=== PATIENT | female | born 1945 | race Caucasian/White ===

== ENCOUNTER → 2020-11-02 | Outpatient (CLI) | payer MEDICARE ==
[~2020-11-02] MED LIST: ATOR1TAB19 PO; ELIQ5TAB PO; GLIP2.5T6 PO; GLIP5TAB20 PO; HOME MED LIST COMPLETE! XX SCH; HYDR12CA PO; LIDOCAINE 1% MDV 20ML VIAL As Ordered ONE; LOSA100T50 PO; METO1TAB32 PO; SERT-141 PO; SODIUM BICARBONATE 8.4% INJ 50MEQ 50 ML VIAL As Ordered ONE; TIMO0.5S29 OU; XALA0.007 OU
--- NOTE | 2020-11-02 10:04 | REP ---
INDICATION: POST RIGHT LUNG BIOPSY, 1 VIEW, PA INSPIRATION. COMPARISON: Comparison is made with CT images from September 14, 2020. TECHNIQUE: PA chest radiograph. Inspiration. FINDINGS: Post biopsy chest x-ray demonstrates increased parenchymal density in the right apex at the is site of the pulmonary nodule. There is no evidence of pneumothorax. There are multifocal areas of interstitial pulmonary fibrosis again seen. Pleural angles are sharp. There are degenerative changes in the thoracic spine. IMPRESSION: No complications seen. <Electronically signed by Brady Espinoza > 11/02/20 1000
[2020-11-02 12:02] VITALS: BP 167/72
--- NOTE | 2020-11-02 13:30 | REP ---
INDICATION: SOLITARY PULMONARY NODULE. COMPARISON: None. TECHNIQUE: The procedure is performed by Madalyn Funk [facility], under the direct supervision of Dr. Espinoza. The risks and benefits of the procedure were explained to the patient and informed consent was obtained both orally and written. Directly prior to the start of the procedure, a formal timeout was done in the exam room. The right upper lobe lung mass was localized using CT guidance. Skin was prepped and draped in the usual sterile fashion. Six ml of buffered lidocaine was used as a local anesthetic. FINDINGS: Using CT guidance a 19/20 gauge coaxial needle biopsy system was inserted and advanced into the right upper lobe lung mass. Eight core biopsy samples were obtained and sent to the lab. CT images obtained directly after the biopsy show no evidence of pneumothorax. After the appropriate amount of monitored convalescence the patient was discharged from the department. IMPRESSION: CT guided right upper lobe lung mass biopsy. <Electronically signed by Madalyn Funk > 11/02/20 [id number] <Electronically signed by Brady Espinoza > 11/02/20 [id number]
== END ==
LOC: M IRPRO 07:59
PROVIDERS: ATTEND Internal Medicine Pulmonary Disease
DX: C34.11 Malignant neoplasm of upper lobe, right bronchus or lung (principal)

== ENCOUNTER → 2020-11-19 | Outpatient (CLI) | payer MEDICARE ==
[~2020-11-19] MED LIST changes: -HOME MED LIST COMPLETE! XX SCH; -LIDOCAINE 1% MDV 20ML VIAL As Ordered ONE; -SODIUM BICARBONATE 8.4% INJ 50MEQ 50 ML VIAL As Ordered ONE
--- NOTE | 2020-11-20 10:19 | REP ---
INDICATION: STAGING LUNG CANCER C34.11. COMPARISON: Outside CT of the chest 09/14/2020. No prior PET CTs for comparison. TECHNIQUE: After the intravenous administration of 9.12 mCi of FDG 18 triplane whole-body PET-CT was performed from the skull base to the mid thigh. FINDINGS: The right upper lobe lung nodule seen on the prior outside CT of the chest which persists on today's nondiagnostic CT component of the PET-CT is hypermetabolic with maximal SUV value of 14.61. There is additional scattered multifocal parenchymal hypermetabolic activity seen in the dependent portion of the lung floyd. This is too numerous to count or individually assess the nondiagnostic CT component of today's exam shows interstitial lung disease with parenchymal scarring and lung field hypoexpansion. There is extensive right hilar hypermetabolism which cannot be from the right hilar vascular structures, however, the degree of hypermetabolic activity is far beyond what would be expected in the vessels themselves and having a maximal SUV value of 18.56 consistent with hypermetabolic adenopathy. Scattered areas of spinal marrow hypermetabolic activity is identified having a maximal SUV value of 3.92 No other areas of abnormal hypermetabolic activity are seen in the neck, chest, abdomen, or pelvis. IMPRESSION: There is hypermetabolic activity in the right lung nodule and right hilum consistent with metastatic disease. The multifocal areas of hypermetabolism seen in the posterior dependent lung parenchyma, as described above, are likely secondary to chronic pulmonary parenchymal changes. Certainly, metastatic foci cannot be completely dismissed. Close follow-up is suggested. The hypermetabolic activity seen in the spinal marrow, as described above, is likely secondary to normal red marrow uptake rather than true skeletal metastasis, however, this should be monitored closely and consideration should be made for conventional bone scintigraphy if relevant. <Electronically signed by Moiz Clark > 11/20/20 [id number]
== END ==
LOC: M PLARAD 11:12
PROVIDERS: ATTEND Internal Medicine Pulmonary Disease
DX: R93.89 Abnormal findings on diagnostic imaging of other specified body structures (principal); C34.11 Malignant neoplasm of upper lobe, right bronchus or lung
CPT/HCPCS: 78815; A9552

== ENCOUNTER → 2020-12-08 | Outpatient (CLI) | payer MEDICARE | LOC: M LABSMTC 09:05 | PROVIDERS: ATTEND Anesthesiology | DX: Z20.822 Contact with and (suspected) exposure to COVID-19 (principal) ==

== ENCOUNTER 2020-12-13 05:58 | Day surgery (SDC) | payer MEDICARE ==
[~2020-12-13] VITALS: Ht 167.6 cm; Wt 90.7 kg
[~2020-12-13 05:58] MED LIST changes: +ALBUTEROL SULFATE 2.5 MG/0.5 ML INH NEB SOLN INH ONE; +LIDOCAINE 4% INJ 5ML AMP INH ONE; +LR 1,000 ML IV ONE
[2020-12-13] MEDS ORDERED: LIDOCAINE 1% MDV 20ML VIAL SQ PRN (06:00)
[2020-12-13] MEDS ORDERED: THROMBIN SOLN 5,000 UNITS VIAL As Ordered ONE (07:20)
[2020-12-13] MEDS ORDERED: LIDOCAINE VISCOUS 2% SOLN 15ML UDC As Ordered ONE (07:21)
[2020-12-13] MEDS ORDERED: EPINEPHrine 1MG/10ML SYRINGE 1.5IN As Ordered ONE (07:21)
[2020-12-13] MEDS ORDERED: LIDOCAINE 1% SDV 30ML VIAL As Ordered ONE (07:21)
[2020-12-13] MEDS ORDERED: CETACAINE SPRAY 5GM As Ordered ONE (07:23)
[2020-12-13] MEDS ORDERED: SCOPOLAMINE 1MG TRANSDERMAL PATCH As Ordered ONE (07:33)
[2020-12-13] MEDS ORDERED: SCOPOLAMINE 1MG TRANSDERMAL PATCH TOP ONE (07:35)
[2020-12-13] MEDS ORDERED: ROCURONIUM BROMIDE 50 MG/5 ML VIAL As Ordered ONE (07:57)
[2020-12-13] MEDS ORDERED: propofoL 200 MG/20 ML VIAL As Ordered ONE (07:57)
[2020-12-13] MEDS ORDERED: LIDOCAINE 2% 100MG/5ML SDV (FOR ANES.) As Ordered ONE (07:57)
[2020-12-13] MEDS ORDERED: MIDAZOLAM INJ 2MG/2ML VIAL (J2250 PER 1MG) As Ordered ONE (07:57)
[2020-12-13] MEDS ORDERED: ONDANSETRON 4MG/2ML VIAL As Ordered ONE (07:57)
[2020-12-13] MEDS ORDERED: dexameTHASONE 4 MG/ML 1ML VIAL (J1100 PER 1MG) As Ordered ONE (07:57)
[2020-12-13] MEDS ORDERED: ACETAMINOPHEN 1000MG 100ML IV BTL (OFIRMEV) (J0131 PER 10MG) As Ordered ONE (07:57)
[2020-12-13] MEDS ORDERED: SUGAMMADEX SODIUM 500 MG/5 ML VIAL (BRIDION) As Ordered ONE (07:57)
[2020-12-13] MEDS ORDERED: fentaNYL 100 MCG/2 ML INJECTION (J3010) As Ordered ONE (07:57)
[2020-12-13] MEDS ORDERED: METOCLOPRAMIDE INJ 10MG/2ML VIAL (J2765 PER 1) As Ordered ONE (07:57)
[2020-12-13] MEDS ORDERED: ONDANSETRON 4MG/2ML VIAL IV PRN (08:50)
[2020-12-13] MEDS ORDERED: LR 1,000 ML IV SCH (08:50)
[2020-12-13] MEDS ORDERED: fentaNYL 100 MCG/2 ML INJECTION (J3010) IV PRN (08:50)
[2020-12-13] MEDS ORDERED: ALBUTEROL SULFATE 2.5 MG/0.5 ML INH NEB SOLN INH ONE (08:55)
[2020-12-13] MEDS ORDERED: ACETAMINOPHEN TAB 650MG DOSE (2X325MG) PO PRN (08:55)
--- NOTE | 2020-12-13 09:05 | RO ---
OPERATIVE NOTE DATE OF OPERATION: 12/13/2020 PREOPERATIVE DIAGNOSIS: POSTOPERATIVE DIAGNOSIS: PROCEDURE: Fiberoptic bronchoscopy with fine needle aspirate of lymph nodes via endobronchial ultrasound. SURGEON: De Gama MD. IT PROJECT MANAGER: Fabby Duong MD. ANESTHESIA: General. Informed consent was obtained prior to the procedure. OPERATIVE FINDINGS: 1. Right hilar and paratracheal adenopathy. 2. Extrinsic compression of the most anterior segment of the right upper lobe. OTHER MEDICATIONS USED: 5000 units of topical Thrombin. DESCRIPTION OF PROCEDURE: After the patient was identified and the above anesthesia given, the fiberoptic bronchoscope was easily passed via the existing endotracheal tube. The tube was in good position. Ashleigh was reasonably sharp. It did appear to move. Some scant secretions were encountered that reasonably suctioned clear. Left lung was entered first. All segments and subsegments of upper and lobe easily identified and widely patent. Attention was then turned to the right. There was some mild submucosal abnormality noted of the take-off of the right upper lobe. Although the main bronchus to the right upper lobe was patent, there was significant extrinsic compression anteriorly of the most anterior subsegment of the right upper lobe. The remainder of the upper lobe was open. Bronchus intermedius, middle lobe and basilar segments were easily identified and otherwise generally widely patent. The standard scope was then withdrawn and the endobronchial ultrasound scope was then introduced. Under ultrasound guidance, multiple passes were made of the right paratracheal proximal right hilar node. Initial examination by the dry cell tester does show abnormal cells visualized. Multiple passes were taken for cell block. The Ebus scope was withdrawn. The standard scope was then re-introduced. There was some minimal bleeding. Topical saline lavage and 5000 units of topical Thrombin were used. When adequate hemostasis was achieved, the scope was then withdrawn and the procedure terminated. Care was then turned over to anesthesia for reversal of anesthesia and extubation. No immediate complications of the procedure were identified.
[2020-12-13 10:10] VITALS: BP 139/78
== END 2020-12-13 10:25 | disposition home or self-care (01) ==
LOC: M SDC 05:58
PROVIDERS: ATTEND Internal Medicine Pulmonary Disease
DX: C34.11 Malignant neoplasm of upper lobe, right bronchus or lung (principal); C77.1 Secondary and unspecified malignant neoplasm of intrathoracic lymph nodes; J98.4 Other disorders of lung; I48.91 Unspecified atrial fibrillation; J96.11 Chronic respiratory failure with hypoxia; E11.9 Type 2 diabetes mellitus without complications; H40.9 Unspecified glaucoma; I10 Essential (primary) hypertension; E78.00 Pure hypercholesterolemia, unspecified; M19.90 Unspecified osteoarthritis, unspecified site; F41.9 Anxiety disorder, unspecified; F32.9 Major depressive disorder, single episode, unspecified; Z79.899 Other long term (current) drug therapy; Z79.01 Long term (current) use of anticoagulants; Z86.16 Personal history of COVID-19
CPT/HCPCS: 31652; 88173; 88305; J0131; J1100; J2250; J2405; J2765; J3010

== ENCOUNTER → 2020-12-27 | Outpatient (CLI) | payer MEDICARE ==
[~2020-12-27] MED LIST changes: -ALBUTEROL SULFATE 2.5 MG/0.5 ML INH NEB SOLN INH ONE; -LIDOCAINE 4% INJ 5ML AMP INH ONE; -LR 1,000 ML IV ONE
--- NOTE | 2020-12-27 11:39 | RADONC.CN ---
Radiation Oncology Hx/Consult Radiation Oncology Consult Date of Service: Dec 27, 2020 Pt Identifier Yuki Gusman is a 75 year old female former smoker with a recently diagnosed RUL NSCLC [id number] stage IIIA. She is seen for consideration of chemoradiation. Diagnosis/Treatment History Oncologic History April 2020: CAP/COVID hospitalization with CT chest showing RUL nodule September 2020: Showed enlargement of the RUL nodule and associated mediastinal adenopathy 11/02/20: EBUS biopsy (Dr. 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 No distant mets She had a surgical evaluation @ [facility] and on the basis of the mediastinal disease surgery was removed as an option. She has seen Dr. Tran who plans weekly chemotherapy with RT. 10/19/20 PFTs FVC 2.22 FEV1 1.82 FEV1/FVC 74% pred DLCO 46% pred Mild restrictive deficit and moderate diffusion impairment Interval History Here with her supportive daughter. Yuki is very hard of hearing but can read lips quite well. She has no pain to speak of. Has chronic cough, no hemoptysis. Minimal THOMASON, able to do all ADLs. No weight loss, appetite good. Past Medical History: Afib DM2 Glaucoma HPL HTN Past Surgical History: Cholecystectomy Family History: No family cancer history Social History: 30 pack year former smoker quit 2008 Does not drink Allergies / Meds Allergies: Coded Allergies: No Known Allergies (Unverified , 12/12/20) Home Meds Reported Medications Glipizide (Glipizide ER) 2.5 Mg Tab.er.24, 2.5 MG PO DAILY 11/02/20 Latanoprost (Xalatan) 0.005% 2.5ML Drops, 1 DROP OU QHS 11/02/20 Timolol Maleate (Timolol Maleate) 0.5% 5ML Drops, 1 DROP OU DAILY 11/02/20 Losartan Potassium (Losartan Potassium) 100 Mg Tablet, 100 MG PO DAILY 10/30/20 Hydrochlorothiazide (Hydrochlorothiazide) 12.5 Mg Capsule, 12.5 MG PO DAILY, CAP 10/30/20 Atorvastatin Calcium (Atorvastatin Calcium) 10 Mg Tablet, 10 MG PO QHS, TAB 10/30/20 Apixaban (Eliquis) 5 Mg Tablet, 5 MG PO BID, TAB 10/30/20 Sertraline Hcl (Sertraline HCl) 50 Mg Tablet, 50 MG PO DAILY 10/30/20 Review of Systems Constitutional: Denies: Fever, Night Sweats, Fatigue Eyes: Denies: Pain HEENT: Denies: Head Aches Skin: Denies: Rash Pulmonary: Reports: Cough; Denies: Dyspnea Cardiovascular: Denies: Chest Pain Gastrointestinal: Denies: Abdominal Pain Hematologic: Denies: Enlarged Lymph Nodes Musculoskeletal: Denies: Neck pain, Back pain Neurological: Denies: Weakness, Numbness Psych: Reports: Mood Normal Vital Signs Ht 66" Wt 201 lbs BMI 32 T 97.9 P 69 RR 18 BP 121/69 O2 90% on RA Pain 0 Fatigue 0 General Exam: Alert, Cooperative, No Acute Distress Eye Exam: PERRLA, EOMI ENT EXAM: Atraumatic Neck Exam: Supple; Negative: Lymphadenopathy Chest Exam: Clear to auscultation, Rhonchi (JASE and mid, mild rhonchi. No wheezing. No rales) Abdomen Exam: Soft; Negative: Tenderness Extremity Exam: Negative: Edema Skin Exam: Nl turgor and temperature Neuro Exam: Normal Gait, Normal Speech; Negative: Cranial Nerves 3-12 NL (BL CNVIII) Psych Exam: Mental status NL Diagnostic and Laboratory Diagnostic Review Radiologic images, relevant labs and pathology reports were personally reviewed and discussed with Ms. Gusman. Assessment and Plan Impression Ms. Gusman is a 75 year old female with a history of former smoker with a recently diagnosed RUL NSCLC [id number] stage IIIA. She is seen for consideration of chemoradiation. Stage RUL NSCLC [id number] stage IIIA Performance Status ECOG 0 Plan We had an extensive discussion with Ms. Gusman regarding the diagnosis at hand and available therapeutic options. I reviewed her imaging and pathology with them in detail. She has a small RUL primary and confluent right hilar and paratracheal adenopathy on PET-CT. The marrow uptake mentioned on PET-CT does not appear pathologic or suspicious for metastatic disease, rather it is probably reactive secondary to her anemia and moderate DLCO impairment. I think there is little utility in the bone scan that has been scheduled for 01/21/21. I left the option of cancelling this as by the time the study is completed she will be under treatment. She does need brain imaging to complete staging, therefore I will order an MRI to be done next week. For treatment Dr. Tran has recommended weekly chemotherapy. Concurrent with this I will give 60-66 Gy in 30-33 fractions contingent upon final dosimetry. I will use VMAT to reduce the risk of grade 3 pulmonary and esophageal toxicity. We will employ a 4DCT/ITV based simulation to account for tumor motion during the respiratory cycle. We discussed the logistics of receiving radiation therapy in detail including the need for a 1-time planning session. This can occur next week. We reviewed the side effects of treatment including fatigue, esophagitis, p neumonitis and fibrosis. After completion of chemoradiation she will receive immunotherapy per Dr. Tran. After discussing the risks, benefits and alternatives to radiation therapy, Ms. Gusman was amenable to pursuing radiotherapy. All questions were answered to the patient's satisfaction. We instructed the patient that if there were any questions,concerns or changes in clinical status in the interim to contact us. Recommendations Chemoradiation 60-66 Gy in 30-33 fractions with 4DCT/VMAT/ITV planning as described above MRI brain to complete staging Can cancel 01/21/21 bone scan, PET-CT is negative and the scan is not timely enough to be of use Billing Statement Total time of [47] minutes was spent preparing for the visit [3], obtaining HPI [7], examining the patient [4], reviewing diagnostic tests [7], discussing management options [15], coordinating care [3], and writing this note [8]. EMILE WESTON MD Dec 27, 2020 11:39
== END ==
LOC: M ONCR 08:53
PROVIDERS: ATTEND General Practice
DX: C34.11 Malignant neoplasm of upper lobe, right bronchus or lung (principal); Z79.899 Other long term (current) drug therapy; Z87.891 Personal history of nicotine dependence

== ENCOUNTER → 2020-12-31 | Outpatient (CLI) | payer MEDICARE ==
[~2020-12-31] MED LIST changes: +LIDOCAINE 1% MDV 20ML VIAL As Ordered ONE; +MIDAZOLAM INJ 2MG/2ML VIAL (J2250 PER 1MG) As Ordered ONE; +NS 1,000 ML IV SCH; +ceFAZolin 2 GM/D5W 50 ML IV BAG (J0690 PER 500MG) As Ordered ONE; +ceFAZolin SOD 2 GM in IV 1 EA IV ONE; +diphenhydrAMINE 50MG/ML VIAL (J1200) As Ordered ONE; +fentaNYL 100 MCG/2 ML INJECTION (J3010) As Ordered ONE
--- NOTE | 2020-12-31 12:50 | IRHP ---
[facility] IR Pre-Procedure H & P General Date of Service: Dec 31, 2020 Procedure: Same Day Surgery Interval History and Physical I have seen the patient and reviewed last H & P performed within 30 days. There is no significant interval change. History of Present Illness Chief Complaint The patient is a 75-year-old female admitted with a reason for visit of Lung Ca. PRE-PROCEDURE DIAGNOSIS: Lung cancer HEART: Normal rate. LUNGS: Normal breathing at rest. ASA Classification ASA Classification: III-Severe systemic dis. Mallampati Score: II NPO: Yes Problems with prior sedation: No Obstructive Sleep Apnea: No Plan moderate sedation Allergies Coded Allergies: No Known Allergies (Unverified , 12/12/20) Home Medications Scheduled Apixaban (Eliquis), 5 MG PO BID, (Reported) Atorvastatin Calcium (Atorvastatin Calcium), 10 MG PO QHS, (Reported) Glipizide (Glipizide ER), 2.5 MG PO DAILY, (Reported) Hydrochlorothiazide (Hydrochlorothiazide), 12.5 MG PO DAILY, (Reported) Latanoprost (Xalatan), 1 DROP OU QHS, (Reported) Losartan Potassium (Losartan Potassium), 100 MG PO DAILY, (Reported) Sertraline Hcl (Sertraline HCl), 50 MG PO DAILY, (Reported) Timolol Maleate (Timolol Maleate), 1 DROP OU DAILY, (Reported) VS, I&O, 24H, Fishbone Vital Signs/I&O Vital Signs Date Time Temp Pulse Resp B/P (MAP) Pulse Ox O2 Delivery O2 Flow Rate FiO2 12/31/20 12:00 97.3 76 18 96 Room Air JENELLE GARCIA MD Dec 31, 2020 12:50
[2020-12-31 15:40] VITALS: BP 163/74
--- NOTE | 2021-01-03 13:03 | IRPON ---
IR Postoperative Note Date Of Procedure: Dec 31, 2020 Time Of Procedure: 16:00 IR Postoperative Note IR Ultrasound and fluoroscopy guided port placement IR Ultrasound of the neck. IR Moderate sedation. Clinical indication: Lung cancer. Physician: Dr. Reyez. Procedure: The patient was advised of the benefits, risks, and alternatives of the procedure and informed consent was obtained. A time-out was performed with verification of the patient's name, MRN, site of procedure and type of procedure to be performed. The patient was positioned in the supine position on the angiographic table. The site was prepped and draped in the usual sterile fashion. Moderate sedation was performed by the physician including the presence of an independent trained RN who assisted and monitored the patient's level of consciousness and physiologic status. Following the administration of fentanyl and Versed , the physician spent 45 minutes of continuous face to face time with the patient. Ultrasound of the neck reveals a patent and compressible right internal jugular vein. A registered massage therapist radiograph reveals hilar fullness. The neck and anterior chest wall were anesthetized with lidocaine. The right internal jugular vein was accessed using a microintroducer needle under ultrasound guidance, via a lateral approach. An 018 wire was advanced into the superior vena cava, the needle was removed and a microsheath was placed. An Amplatz wire was then passed into the inferior vena cava. An incision at the internal jugular vein access site and anterior chest wall were made using a scalpel. An incision was made at the anterior chest wall. A small pocket was created using a combination of blunt and sharp dissection. A tunneling device was then used to pass the catheter from the pocket to the neck puncture site. An 8- [employer] [facility] Smart power port was then positioned in the pocket. The catheter was then measured and cut. The introducer sheath was exchanged for a peel-away sheath. The catheter was passed through the peel-away sheath into the internal jugular vein and the peel-away sheath was removed. The port tip was positioned at the cavoatrial junction. The port was then accessed with a Wang needle. The port flushes and aspirates well. The puncture site in the neck was closed. The chest wall incision was then closed with 2-0 Vicryl and 4-0 Monocryl. Glue and Steri- Strips were applied. A sterile dressing was then applied. The patient tolerated the procedure well and was returned to the PRU in stable condition. Estimated blood loss: <5 ml. Complications: None. Conclusion: 1. Successful placement of an 8-[employer] Smart power port via the right internal jugular vein. The port is ready for immediate use. 2. Patient to follow up in IR clinic in 2 weeks. Thank you for this referral. JENELLE REYEZ MD Jan 03, 2021 13:03
== END ==
LOC: M IRPRO 11:46
PROVIDERS: ATTEND Specialist
DX: C34.90 Malignant neoplasm of unspecified part of unspecified bronchus or lung (principal); Z79.899 Other long term (current) drug therapy
CPT/HCPCS: 36561; 99152; 99153; C1769; C1788; C1894; J0690; J1200; J1642; J1644; J2250; J3010

== ENCOUNTER 2021-01-02 13:49 | Outpatient (RCR) | payer MEDICARE ==
[~2021-01-02 13:49] MED LIST changes: -LIDOCAINE 1% MDV 20ML VIAL As Ordered ONE; -MIDAZOLAM INJ 2MG/2ML VIAL (J2250 PER 1MG) As Ordered ONE; -NS 1,000 ML IV SCH; -ceFAZolin 2 GM/D5W 50 ML IV BAG (J0690 PER 500MG) As Ordered ONE; -ceFAZolin SOD 2 GM in IV 1 EA IV ONE; -diphenhydrAMINE 50MG/ML VIAL (J1200) As Ordered ONE; -fentaNYL 100 MCG/2 ML INJECTION (J3010) As Ordered ONE
== END 2021-01-06 ==
LOC: M ONCR 13:49
PROVIDERS: ATTEND General Practice
DX: C34.11 Malignant neoplasm of upper lobe, right bronchus or lung (principal)

== ENCOUNTER → 2021-01-10 | Outpatient (CLI) | payer MEDICARE ==
[~2021-01-10] MED LIST changes: +ONDA8TAB10 PO; +PROC10TA4 PO; +PROHANCE 279.3MG/ML 5ML VIAL As Ordered ONE
--- NOTE | 2021-01-10 23:16 | REPVR ---
PROCEDURE INFORMATION: Exam: MR Head Without and With Contrast Exam date and time: 01/10/2021 6:41 PM Age: 75 years old Clinical indication: Staging for lung cancer. Assess for metastatic disease. TECHNIQUE: Imaging protocol: MR of the head without and with intravenous contrast. Contrast material: PROHANCE; Contrast volume: 7 ml; Contrast route: INTRAVENOUS (IV); COMPARISON: PET/CT Skull/mid thigh 11/19/2020 12:19 PM FINDINGS: Brain: Nonspecific T2/FLAIR hyperintensities of the periventricular and deep subcortical white matter and negin, most likely secondary to chronic small vessel ischemic change. No intracranial hemorrhage or extra-axial fluid collection. No evidence of mass effect or midline shift. No restricted diffusion to suggest acute infarct. No abnormal intracranial enhancement. Cerebral ventricles: Prominence of the ventricles and sulci, likely attributed to parenchymal volume loss. Bones/joints: Unremarkable. Paranasal sinuses: Normal as visualized. No acute sinusitis. Mastoid air cells: No mastoid effusion. Orbital cavity: Unremarkable. Soft tissues: Unremarkable. IMPRESSION: 1. No acute intracranial pathology. No evidence of metastatic disease to the brain. 2. Chronic findings, as above. Electronically signed by: Marcial Kim On 01/10/2021 23:15:29 PM
== END ==
LOC: M RAD 17:41
PROVIDERS: ATTEND General Practice
DX: C34.11 Malignant neoplasm of upper lobe, right bronchus or lung (principal)
CPT/HCPCS: 70553; A9576

== ENCOUNTER → 2021-01-15 | Outpatient (POV) | payer MEDICARE ==
[~2021-01-15] VITALS: Ht 167.6 cm; Wt 90.9 kg
[~2021-01-15] MED LIST changes: -PROHANCE 279.3MG/ML 5ML VIAL As Ordered ONE
[2021-01-15 09:45] VITALS: BP 160/82
--- NOTE | 2021-01-17 12:30 | IRPN ---
[facility] IR Progress Note IR Progress Note DATE: Jan 15, 2021 FOLLOW-UP: Status post port placement. Patient reports doing well. No fevers, chills, pain or discharge from site. ON EXAMINATION: Port site healing well. Glue and Steri-Strips are in place. No redness, swelling or fluctuance. IMPRESSION: Doing well status post port placement. Glue and Steri-Strips will fall off by themselves. No further follow-up scheduled unless initiated by patient and/or referring provider. Thank you for this referral Allergies Coded Allergies: No Known Allergies (Unverified , 12/12/20) VS,Fishbone, I+O VS, Fishbone, I+O Vital Signs Date Time Temp Pulse Resp B/P (MAP) Pulse Ox O2 Delivery O2 Flow Rate FiO2 01/15/21 09:45 96.4 58 16 160/82 (108) 92 Room Air JENELLE GARCIA MD Jan 17, 2021 12:29
== END ==
LOC: M IRPOV 09:39
PROVIDERS: ATTEND Radiology Diagnostic Radiology
DX: Z45.2 Encounter for adjustment and management of vascular access device (principal)

== ENCOUNTER → 2021-02-05 | Outpatient (RCR) | payer MEDICARE ==
[~2021-02-05] MED LIST changes: +LOSA100T45 PO; -LOSA100T50 PO; +NACCAP PO; +ONDA-84 PO; -ONDA8TAB10 PO; -PROC10TA4 PO; +PROC10TA5 PO
== END ==
LOC: M ONCR 01-07 13:30
PROVIDERS: ATTEND General Practice
DX: C34.11 Malignant neoplasm of upper lobe, right bronchus or lung (principal)

== ENCOUNTER 2021-03-04 11:23 | Outpatient (RCR) | payer MEDICARE ==
[~2021-03-04 11:23] MED LIST changes: -LOSA100T45 PO; +LOSA100T50 PO; -NACCAP PO; -ONDA-84 PO; +ONDA8TAB10 PO; +PROC10TA4 PO; -PROC10TA5 PO
== END 2021-03-08 ==
LOC: M ONCR 11:23
PROVIDERS: ATTEND General Practice
DX: C34.11 Malignant neoplasm of upper lobe, right bronchus or lung (principal)

== ENCOUNTER → 2021-06-03 | Outpatient (CLI) | payer MEDICARE ==
[~2021-06-03] MED LIST changes: +ISOVUE-370 76% 100ML VIAL As Ordered ONE; +LOSA100T45 PO; -LOSA100T50 PO; +NACCAP PO; +ONDA-84 PO; -ONDA8TAB10 PO; -PROC10TA4 PO; +PROC10TA5 PO
== END ==
LOC: M RAD 12:01
PROVIDERS: ATTEND Internal Medicine Medical Oncology
DX: C34.11 Malignant neoplasm of upper lobe, right bronchus or lung (principal)
CPT/HCPCS: 71260; Q9967

== ENCOUNTER → 2021-09-04 | Outpatient (CLI) | payer MEDICARE ==
[~2021-09-04] MED LIST changes: +CLAR5TAB11 PO; +FLON1SPR NARES; -ISOVUE-370 76% 100ML VIAL As Ordered ONE; +PULM90IN INH
== END ==
LOC: M ONCR 10:52
PROVIDERS: ATTEND General Practice
DX: C34.11 Malignant neoplasm of upper lobe, right bronchus or lung (principal); J70.1 Chronic and other pulmonary manifestations due to radiation; Z79.01 Long term (current) use of anticoagulants; Z79.899 Other long term (current) drug therapy; Z87.891 Personal history of nicotine dependence; Z92.3 Personal history of irradiation; Z92.21 Personal history of antineoplastic chemotherapy; Z92.25 Personal history of immunosuppression therapy

== ENCOUNTER → 2021-11-14 | Outpatient (CLI) | payer MEDICARE ==
[~2021-11-14] MED LIST changes: +ISOVUE-370 76% 100ML VIAL As Ordered ONE; +ISOVUE-370 76% 25ML SYRINGE As Ordered ONE; +L-TH100C2 PO
== END ==
LOC: M RAD 10:41
PROVIDERS: ATTEND Internal Medicine Medical Oncology
DX: C34.90 Malignant neoplasm of unspecified part of unspecified bronchus or lung (principal)
CPT/HCPCS: 71260; Q9967

== ENCOUNTER → 2022-02-12 | Outpatient (CLI) | payer MEDICARE ==
[~2022-02-12] MED LIST changes: -ISOVUE-370 76% 25ML SYRINGE As Ordered ONE
== END ==
LOC: M RAD 10:13
PROVIDERS: ATTEND Specialist
DX: C34.90 Malignant neoplasm of unspecified part of unspecified bronchus or lung (principal)
CPT/HCPCS: 71260; Q9967

== ENCOUNTER → 2022-02-26 | Outpatient (CLI) | payer MEDICARE ==
[~2022-02-26] MED LIST changes: -ISOVUE-370 76% 100ML VIAL As Ordered ONE
== END ==
LOC: M ONCR 10:33
PROVIDERS: ATTEND General Practice
DX: C34.11 Malignant neoplasm of upper lobe, right bronchus or lung (principal); J70.1 Chronic and other pulmonary manifestations due to radiation; Z79.01 Long term (current) use of anticoagulants; Z79.84 Long term (current) use of oral hypoglycemic drugs; Z79.899 Other long term (current) drug therapy; Z87.891 Personal history of nicotine dependence; Z92.21 Personal history of antineoplastic chemotherapy; Z92.25 Personal history of immunosuppression therapy; Z92.3 Personal history of irradiation

== ENCOUNTER → 2022-07-08 | Outpatient (CLI) | payer MEDICARE ==
[~2022-07-08] MED LIST changes: +CEFP100T PO; +GASTROGRAFIN SOLUTION 30ML As Ordered ONE; +ISOVUE-370 76% 100ML VIAL As Ordered ONE; -LOSA100T45 PO; +LOSA100T46 PO; +LOSA50TA28; +TIMO0.5S20 OU; -TIMO0.5S29 OU
== END ==
LOC: M RAD 06-03 13:01
PROVIDERS: ATTEND Nurse Practitioner
DX: C34.91 Malignant neoplasm of unspecified part of right bronchus or lung (principal)
CPT/HCPCS: 71260; 74177; Q9963; Q9967

== ENCOUNTER → 2022-08-27 | Outpatient (CLI) | payer MEDICARE ==
[~2022-08-27] MED LIST changes: +BREO1INH PO; -GASTROGRAFIN SOLUTION 30ML As Ordered ONE; -ISOVUE-370 76% 100ML VIAL As Ordered ONE
== END ==
LOC: M ONCR 10:55
PROVIDERS: ATTEND General Practice
DX: Z08 Encounter for follow-up examination after completed treatment for malignant neoplasm (principal); J84.10 Pulmonary fibrosis, unspecified; Z85.110 Personal history of malignant carcinoid tumor of bronchus and lung; Z71.2 Person consulting for explanation of examination or test findings; Z79.01 Long term (current) use of anticoagulants; Z79.51 Long term (current) use of inhaled steroids; Z79.84 Long term (current) use of oral hypoglycemic drugs; Z79.899 Other long term (current) drug therapy; Z86.16 Personal history of COVID-19; Z92.21 Personal history of antineoplastic chemotherapy; Z92.25 Personal history of immunosuppression therapy; Z92.3 Personal history of irradiation

== ENCOUNTER → 2022-10-28 | Outpatient (CLI) | payer MEDICARE ==
[~2022-10-28] MED LIST changes: +ISOVUE-370 76% 100ML VIAL As Ordered ONE
== END ==
LOC: M RAD 08:54
PROVIDERS: ATTEND Nurse Practitioner
DX: C34.90 Malignant neoplasm of unspecified part of unspecified bronchus or lung (principal)
CPT/HCPCS: 71260; Q9967

== ENCOUNTER 2023-01-22 13:07 | Outpatient (RCR) | payer MEDICARE ==
[~2023-01-22 13:07] MED LIST changes: -ISOVUE-370 76% 100ML VIAL As Ordered ONE; +SERT50TA29; +VENTAER INH
[2023-02-06] MEDS ORDERED: SERT25TA85 PO (09:55)
[2023-02-09] MEDS ORDERED: LEVE250T5 PO (15:44)
== END 2023-02-05 ==
LOC: M ONCR 13:07
PROVIDERS: ATTEND General Practice
DX: Z51.0 Encounter for antineoplastic radiation therapy (principal); C79.31 Secondary malignant neoplasm of brain

== ENCOUNTER 2023-02-11 13:58 | Outpatient (RCR) | payer MEDICARE ==
[~2023-02-11 13:58] MED LIST changes: +LEVE250T5 PO; +SERT25TA85 PO
== END 2023-03-08 ==
PROVIDERS: ATTEND General Practice
DX: Z51.0 Encounter for antineoplastic radiation therapy (principal); C79.31 Secondary malignant neoplasm of brain

== ENCOUNTER → 2023-03-23 | Outpatient (CLI) | payer MEDICARE | LOC: M PLARAD 13:34 | PROVIDERS: ATTEND Internal Medicine Hematology & Oncology | DX: C34.11 Malignant neoplasm of upper lobe, right bronchus or lung (principal) | CPT/HCPCS: 78815; A9552 ==

== ENCOUNTER 2023-04-24 11:56 | Outpatient (RCR) | payer MEDICARE ==
[~2023-04-24 11:56] MED LIST changes: -LOSA50TA28; +LOSA50TA28 PO
== END 2023-05-07 ==
LOC: M ONCR 11:56
PROVIDERS: ATTEND General Practice
DX: Z51.0 Encounter for antineoplastic radiation therapy (principal); C34.12 Malignant neoplasm of upper lobe, left bronchus or lung

== ENCOUNTER → 2023-05-25 | Outpatient (CLI) | payer MEDICARE ==
[~2023-05-25] MED LIST changes: +PROHANCE 279.3MG/ML 15ML VIAL As Ordered ONE
== END ==
LOC: M RAD 10:26
PROVIDERS: ATTEND General Practice
DX: C79.31 Secondary malignant neoplasm of brain (principal)
CPT/HCPCS: 70553; A9576

== ENCOUNTER → 2023-07-10 | Outpatient (CLI) | payer MEDICARE ==
[~2023-07-10] MED LIST changes: -PROHANCE 279.3MG/ML 15ML VIAL As Ordered ONE
== END ==
LOC: M RAD 10:12
PROVIDERS: ATTEND General Practice
DX: C34.12 Malignant neoplasm of upper lobe, left bronchus or lung (principal); C34.11 Malignant neoplasm of upper lobe, right bronchus or lung; C79.31 Secondary malignant neoplasm of brain

== ENCOUNTER → 2023-10-02 | Outpatient (CLI) | payer MEDICARE | LOC: M RAD 09-24 13:23 → M PLARAD 13:33 | PROVIDERS: ATTEND General Practice | DX: C34.90 Malignant neoplasm of unspecified part of unspecified bronchus or lung (principal); C79.31 Secondary malignant neoplasm of brain ==

== ENCOUNTER → 2023-10-07 | Outpatient (CLI) | payer MEDICARE ==
[~2023-10-07] MED LIST changes: +BACT800T5 PO; +PRED20TA PO; +PROBCAP14 PO; +VITA100T59 PO
== END ==
LOC: M ONCR 14:01
PROVIDERS: ATTEND General Practice
DX: C34.11 Malignant neoplasm of upper lobe, right bronchus or lung (principal); C79.31 Secondary malignant neoplasm of brain; J98.4 Other disorders of lung; Z87.891 Personal history of nicotine dependence; Z79.01 Long term (current) use of anticoagulants; Z79.84 Long term (current) use of oral hypoglycemic drugs; Z79.899 Other long term (current) drug therapy; Z92.21 Personal history of antineoplastic chemotherapy; Z92.3 Personal history of irradiation; Z92.29 Personal history of other drug therapy

== ENCOUNTER → 2023-10-16 | Outpatient (CLI) | payer MEDICARE ==
[~2023-10-16] MED LIST changes: -BACT800T5 PO; +ISOVUE-370 76% 100ML VIAL As Ordered ONE; -PRED20TA PO
== END ==
LOC: M RAD 15:25
PROVIDERS: ATTEND Internal Medicine Hematology & Oncology
DX: C34.90 Malignant neoplasm of unspecified part of unspecified bronchus or lung (principal); I51.7 Cardiomegaly; J47.9 Bronchiectasis, uncomplicated
CPT/HCPCS: 71260; Q9967